=== PATIENT | female | born 1995 | race American Indian/Alaskan Native ===

== ENCOUNTER 2017-11-30 17:07 | Emergency (ER) | payer SELFPAY ==
[2017-11-30 19:01] LABS: Mucus,Urine 2+ /HPF
[2017-11-30 19:03] LABS: Bilirubin,Urine NEG (Negative); Blood,Urine NEG (Negative); Color,Urine Amber (Yellow); Urobilinogen,Urine < 2.0 mg/dL (<2.0)
[2017-11-30 19:06] LABS: HCG Qualitative,Urine Negative (Negative)
--- NOTE | 2017-11-30 20:54 | Emergency Department Report ---
ED Female HPI - General Chief complaint: Abdominal Pain Stated complaint: PELVIC PAIN Time Seen by Provider: 11/30/17 20:01 Source: patient Mode of arrival: Ambulatory Limitations: No Limitations - History of Present Illness Initial comments: 22-year-old female with past medical history bacterial vaginosis her current presents with complaint of one week of dysuria. Denies any nausea vomiting fever chills or flank pain. States she has some suprapubic discomfort and burning with urination. Denies any history of STDs. States she has an IUD and her periods are regular. Slightly whitish discharge reported by patient. States she had some spotting 5 days ago. States she is taking [id number] AZO with minimal relief of her symptoms. MD Complaint: dysuria Onset/Timin -: week(s) Location: suprapubic Severity: mild Quality: burning Consistency: intermittent Worsens with: urination Are you Now?: No Last Menstrual Period: 11/25/17 EDC: 09/01/18 - Related Data Sexually active: Yes Previous Rx's Medication Instructions Recorded Last Taken Type Acetaminophen [Acetaminophen TAB] 500 mg PO Q6HR PRN #20 tablet 11/30/17 Unknown Rx Sulfamethoxazole/Trimethoprim 1 each PO BID #10 tablet 11/30/17 Unknown Rx [Bactrim DS TAB] metroNIDAZOLE [Metronidazole] 500 mg PO BID #14 tablet 11/30/17 Unknown Rx Allergies Allergy/AdvReac Type Severity Reaction Status Date / Time No Known Allergies Allergy Unverified 11/30/17 17:46 ED Review of Systems ROS: Stated complaint: PELVIC PAIN Other details as noted in HPI Constitutional: denies: chills, fever Eyes: denies: eye pain, eye discharge, vision change ENT: denies: ear pain, throat pain Respiratory: denies: cough, shortness of breath, wheezing Cardiovascular: denies: chest pain, palpitations Endocrine: no symptoms reported Gastrointestinal: denies: abdominal pain, nausea, diarrhea Genitourinary: dysuria. denies: urgency, discharge Musculoskeletal: denies: back pain, joint swelling, arthralgia Skin: denies: rash, lesions Neurological: denies: headache, weakness, paresthesias Psychiatric: denies: anxiety, depression Hematological/Lymphatic: denies: easy bleeding, easy bruising ED Past Medical Hx - Past Medical History Previous Medical History?: No - Surgical History Past Surgical History?: No - Social History Smoking Status: Never Smoker Substance Use Type: None - Medications Home Medications: Home Medications Medication Instructions Recorded Confirmed Last Taken Type Acetaminophen [Acetaminophen TAB] 500 mg PO Q6HR PRN #20 tablet 11/30/17 Unknown Rx Sulfamethoxazole/Trimethoprim 1 each PO BID #10 tablet 11/30/17 Unknown Rx [Bactrim DS TAB] metroNIDAZOLE [Metronidazole] 500 mg PO BID #14 tablet 11/30/17 Unknown Rx ED Physical Exam - General Limitations: No Limitations General appearance: alert, in no apparent distress - Head Head exam: Present: atraumatic, normocephalic - Eye Eye exam: Present: normal appearance, PERRL, EOMI - ENT ENT exam: Present: mucous membranes moist - Neck Neck exam: Present: normal inspection - Respiratory Respiratory exam: Present: normal lung sounds bilaterally. Absent: respiratory distress - Cardiovascular Cardiovascular Exam: Present: regular rate, normal rhythm. Absent: systolic murmur, diastolic murmur, rubs, gallop - GI/Abdominal GI/Abdominal exam: Present: soft, normal bowel sounds - External exam: Present: normal external exam Speculum exam: Present: vaginal discharge (slightly white vaginal discharge on pelvic exam) Bi-manual exam: Present: normal bi-manual exam (no adnexal or cervical motion tenderness on clinical exam) - Extremities Exam Extremities exam: Present: normal inspection - Back Exam Back exam: Present: normal inspection - Neurological Exam Neurological exam: Present: alert, oriented X3, CN II-XII intact, normal gait - Psychiatric Psychiatric exam: Present: normal affect, normal mood - Skin Skin exam: Present: warm, dry, intact, normal color. Absent: rash ED Course Vital Signs 11/30/17 17:46 Temperature 98.5 F Pulse Rate 97 H Respiratory 16 Rate Blood Pressure 134/68 O2 Sat by Pulse 100 Oximetry ED Medical Decision Making - Medical Decision Making A/P: Urinary tract infection, bacterial vaginosis 1-empiric treatment with Bactrim and Flagyl. As patient is requesting low-cost medicine will give her Bactrim for UTi tx [email or web address] 2-urine culture sent, Chlamydia gonorrhea cultures sent, wet prep shows clue cells. I advised patient to return to the ED for any development of flank pain nausea vomiting fevers chills or inability to tolerate by mouth fluid or food. Patient stated she understood my instructions. 3-follow-up with [facility] and primary care Critical care attestation.: If time is entered above; I have spent that time in minutes in the direct care of this critically ill patient, excluding procedure time. ED Disposition Clinical Impression: Dysuria Urinary tract infection Qualifiers: Urinary tract infection type: acute cystitis Hematuria presence: without hematuria Qualified Code(s): N30.00 - Acute cystitis without hematuria Disposition: TO HOME OR SELFCARE Is pt being admited?: No Does the pt Need Aspirin: No Condition: Stable Instructions: Urinary Tract Infection in Women (ED), Dysuria (ED), Bacterial Vaginosis (ED) Prescriptions: Acetaminophen [Acetaminophen TAB] 500 mg PO Q6HR PRN #20 tablet PRN Reason: Pain metroNIDAZOLE [Metronidazole] 500 mg PO BID #14 tablet Sulfamethoxazole/Trimethoprim [Bactrim DS TAB] 1 each PO BID #10 tablet Referrals: [facility] [Provider Group] - 3-[address] [facility] [Provider Group] - 3-5 Days Forms: Work/School Release Form(ED) Time of Disposition: 21:52
[2017-11-30] MEDS ORDERED: BACTRIM DS PO ONE (21:58)
[2017-12-01 00:31] VITALS: BP 132/67
== END 2017-11-30 21:58 | disposition home or self-care (01) ==
LOC: ED 17:07
DX: N39.0 Urinary tract infection, site not specified (principal)
CPT/HCPCS: 81001; 81025; 87076; 87086; 87186; 87210; 87591; 99283; 99284